=== PATIENT | female | born 1995 | race American Indian/Alaskan Native ===

== ENCOUNTER 2019-12-05 19:17 | Emergency (ER) | payer MEDICAID, OTHER ==
[2019-12-05 20:46] LABS: HCG Qualitative,Urine Positive (Negative)
[2019-12-05 20:50] LABS: Bilirubin,Urine NEG (Negative); Blood,Urine NEG (Negative); Color,Urine Yellow (Yellow); Mucus,Urine FEW /HPF; Protein,Urine <15 mg/dL mg/dL (Negative)
--- NOTE | 2019-12-05 22:33 | Ultrasound Report ---
OB Ultrasound HISTORY: pelvic pain and +preg test. TECHNIQUE: Grayscale and color imaging performed. COMPARISON: No recent comparison imaging. FINDINGS: Transabdominal and endovaginal imaging was performed. Uterus measures 7.5 x 4.7 x 5.8 cm with endometrial echocomplex measuring 1.3 cm. No intrauterine ges tation identified. Both ovaries are normal in size and appearance with preserved blood flow. No pelvi c free fluid. IMPRESSION: No intrauterine gestation identified. No acute abnormality. Signer Name: Alex Garza MD Signed: 12/05/2019 10:28 PM Workstation Name: [id number]
--- NOTE | 2019-12-05 23:36 | Emergency Department Report ---
ED General Adult HPI - General Chief complaint: Abdominal Pain Stated complaint: PELVIC PAIN CRAMPS Time Seen by Provider: 12/05/19 22:56 Source: patient Mode of arrival: Ambulatory Limitations: No Limitations - History of Present Illness Initial comments: 23-year-old -[place] female presents emergency department complaining of a few month history of a suprapubic pain that has been progressively worsening over the past few days not associated with any vaginal discharge or vaginal bleeding. She reports no hematuria no hematochezia no dysuria no hematemesis. Reports no fever, chills, sweats no trauma. She reports no constipation or diarrhea Quality: aching, dull Consistency: intermittent Improves with: none Worsens with: none Associated Symptoms: denies: chest pain, cough, diaphoresis, malaise, syncope, weakness Treatments Prior to Arrival: none - Related Data Previous Rx's Medication Instructions Recorded Last Taken Type Ondansetron [Zofran TAB] 4 mg PO Q8HR PRN #20 tablet 05/23/16 Unknown Rx Vit 14/Iron Fum/Folic 1 each PO DAILY #90 tab.chew 05/23/16 Unknown Rx [Completenate Tablet Chew] metroNIDAZOLE 0.75% [Vandazole 1 applicator VG QHS #5 tube 05/23/16 Unknown Rx 0.75% VAGINAL] Doxylamine Succinate/Vit B6 1 each PO BID #14 tablet. 12/05/19 Unknown Rx [Donato Gandhi 10-10 mg Tablet] Allergies Allergy/AdvReac Type Severity Reaction Status Date / Time Penicillins Allergy Swelling Verified 05/27/13 15:05 ED Review of Systems ROS: Stated complaint: PELVIC PAIN CRAMPS Other details as noted in HPI Comment: All other systems reviewed and negative ED Past Medical Hx - Past Medical History Previous Medical History?: No - Surgical History Past Surgical History?: No - Social History Smoking Status: Never Smoker Substance Use Type: None - Medications Home Medications: Home Medications Medication Instructions Recorded Confirmed Last Taken Type Ondansetron [Zofran TAB] 4 mg PO Q8HR PRN #20 tablet 05/23/16 Unknown Rx Vit 14/Iron Fum/Folic 1 each PO DAILY #90 tab.chew 05/23/16 Unknown Rx [Completenate Tablet Chew] metroNIDAZOLE 0.75% [Vandazole 1 applicator VG QHS #5 tube 05/23/16 Unknown Rx 0.75% VAGINAL] Doxylamine Succinate/Vit B6 1 each PO BID #14 tablet. 12/05/19 Unknown Rx [Donato Gandhi 10-10 mg Tablet] ED Physical Exam - General Limitations: No Limitations General appearance: alert, in no apparent distress - Head Head exam: Present: atraumatic, normocephalic - Eye Eye exam: Present: normal appearance, PERRL, EOMI Pupils: Present: normal accommodation - ENT ENT exam: Present: normal exam, mucous membranes moist, TM's normal bilaterally - Neck Neck exam: Present: normal inspection, full ROM - Respiratory Respiratory exam: Present: normal lung sounds bilaterally. Absent: respiratory distress, wheezes, rales, chest wall tenderness, accessory muscle use - Cardiovascular Cardiovascular Exam: Present: regular rate, normal rhythm. Absent: systolic murmur, diastolic murmur, rubs, gallop - GI/Abdominal GI/Abdominal exam: Present: soft, normal bowel sounds - Extremities Exam Extremities exam: Present: normal inspection, normal capillary refill - Back Exam Back exam: Present: normal inspection. Absent: CVA tenderness (R), CVA tenderness (L) - Neurological Exam Neurological exam: Present: alert, oriented X3, CN II-XII intact - Psychiatric Psychiatric exam: Present: normal affect, normal mood - Skin Skin exam: Present: warm, dry, intact, normal color. Absent: rash ED Course Vital Signs 12/05/19 12/05/19 12/06/19 20:19 20:24 05:44 Temperature 97.9 F 98.3 F Pulse Rate 85 83 Respiratory 18 15 Rate Blood Pressure 102/69 Blood Pressure 140/74 [Right] O2 Sat by Pulse 100 100 Oximetry ED Medical Decision Making - Radiology Data Radiology results: report reviewed [facility] [address] [place] [address] Ultrasound Report Signed Patient: KING ARGUELLO MR#: [id number] : 1995 Acct:[id number] Age/Sex: 23 / F ADM Date: 12/05/19 Loc: ED Attending Dr: Ordering Physician: LUCINA TAMAYO Date of Service: 12/05/19 Procedure(s): US OB transvaginal Accession Number(s): [id number] cc: LUCINA TAMAYO OB Ultrasound HISTORY: pelvic pain and +preg test. TECHNIQUE: Grayscale and color imaging performed. COMPARISON: No recent comparison imaging. FINDINGS: Transabdominal and endovaginal imaging was performed. Uterus measures 7.5 x 4.7 x 5.8 cm with endometrial echocomplex measuring 1.3 cm. No intrauterine gestation identified. Both ovaries are normal in size and appearance with preserved blood flow. No pelvic free fluid. IMPRESSION: No intrauterine gestation identified. No acute abnormality. Signer Name: Alex Garza MD Signed: 12/05/2019 10:28 PM Workstation Name: [id number] Transcribed By: LINDA Dictated By: Alex Garza MD Electronically Authenticated By: Alex Garza MD Signed Date/Time: 12/05/192227 DD/ 26 TD/TT: - Medical Decision Making 23-year-old female with pelvic cramping and aching with a positive urine test however ultrasound does not reveal any intrauterine gestation. It is unknown with the age of her is as she has just recently gone off appears in the last couple weeks. Advised patient of likelihood this could be very early versus a near completing miscarriage versus a false positive result she is been advised to reevaluate her hCG quant in the next few days to help with confirmation or verification of her status Critical care attestation.: If time is entered above; I have spent that time in minutes in the direct care of this critically ill patient, excluding procedure time. ED Disposition Clinical Impression: , Nausea & vomiting Disposition: DC-01 TO HOME OR SELFCARE Is pt being admited?: No Does the pt Need Aspirin: No Condition: Stable Instructions: (ED), Abdominal Pain (ED) Additional Instructions: Please be sure to follow-up and 1 week and we evaluate your test Prescriptions: Doxylamine Succinate/Vit B6 [Donato Gandhi 10-10 mg Tablet] 1 each PO BID #14 tablet. Referrals: [facility] [Provider Group] - 3-5 Days [facility] [Provider Group] - 3-5 Days
[2019-12-06 05:48] VITALS: BP 140/74
== END 2019-12-06 00:05 | disposition home or self-care (01) ==
LOC: ED 19:17
DX: O26.891 Other specified pregnancy related conditions, first trimester (principal); R10.2 Pelvic and perineal pain; Z3A.01 Less than 8 weeks gestation of pregnancy; Z79.899 Other long term (current) drug therapy
CPT/HCPCS: 36415; 76801; 76802; 76817; 81001; 81025; 84702

== ENCOUNTER 2020-05-18 09:16 | Outpatient (CLI) | payer OTHER ==
[2020-05-18] MEDS ORDERED: LACTATED RINGERS 1,000 ML IV ONE ×2 (10:30→13:31)
--- NOTE | 2020-05-18 12:28 | Ultrasound Report ---
ULTRASOUND OBSTETRIC LIMITED INDICATION / CLINICAL INFORMATION: FALL. TECHNIQUE: Transabdominal ultrasound imaging. COMPARISON: 12/05/2019 FINDINGS: HEART RATE (beats per minute): 135 AMNIOTIC FLUID INDEX (cm) = 34.6 PRESENTATION: Cephalic. ADDITIONAL FINDINGS: The placenta is anterior, grade 1. No abruption is detected on ultrasound. IMPRESSION: No acute abnormality or placental abruption is detected. Polyhydramnios is suggested with DENISA measuring 34.6. Signer Name: Darryl Meneses Jr, MD Signed: 05/18/2020 12:19 PM Workstation Name: [id number]
[2020-05-18] MEDS ORDERED: ACETAMINOPHEN 325 MG TAB PO ONE (13:31)
[2020-05-18] MEDS ORDERED: TERBUTALINE 1 MG/1 ML INJ SUB-Q ONE (14:37)
[2020-05-18 14:58] VITALS: BP 107/62
== END 2020-05-18 15:08 | disposition home or self-care (01) ==
LOC: TRG 09:16 → APU 09:18 → TRG 15:08
PROVIDERS: ATTEND Obstetrics & Gynecology
DX: O47.02 False labor before 37 completed weeks of gestation, second trimester (principal); Z3A.25 25 weeks gestation of pregnancy; W10.8XXA Fall (on) (from) other stairs and steps, initial encounter; Y93.89 Activity, other specified; Y92.89 Other specified places as the place of occurrence of the external cause; Y99.8 Other external cause status
CPT/HCPCS: 59025; 76815; 96360; 96361; 96372; J3105; J7120